=== PATIENT | male | born 1960 ===

== ENCOUNTER 2021-07-31 | Inpatient (IN) | payer BC | END 2021-08-04 11:47 | disposition home or self-care (01) | DRG 871 | PROVIDERS: ADMIT Emergency Medicine | PROC: 02HV33Z Insertion of Infusion Device into Superior Vena Cava, Percutaneous Approach (ICD-10-PCS; principal; 2021-08-03) | PROC: B548ZZA Ultrasonography of Superior Vena Cava, Guidance (ICD-10-PCS; 2021-08-03) ==